=== PATIENT | female | born 1950 | race Two or more races ===

== ENCOUNTER → 2020-02-19 | Emergency (ER) | payer OTHER ==
[~2020-02-19] VITALS: Ht 152.4 cm; Wt 72.6 kg
[~2020-02-19] MED LIST: ADEMPAS2.5 MG; [UNRECOGNIZED DRUG - OTHER]
== END | disposition expired ==
LOC: ER 14:21
DX: J96.00 Acute respiratory failure, unspecified whether with hypoxia or hypercapnia (principal); I25.10 Atherosclerotic heart disease of native coronary artery without angina pectoris; I10 Essential (primary) hypertension